=== PATIENT | female | born 1990 | race Caucasian/White ===

== ENCOUNTER 2016-12-18 16:54 | Emergency (ER) | payer SELFPAY ==
[2016-12-18] MEDS ORDERED: AMOXICILLIN875 M1 PO (18:31)
[2016-12-18] MEDS ORDERED: NO HOME MEDICATION XX (18:40)
[2016-12-18] MEDS ORDERED: ZITHROMAX250 M1 PO (18:46)
[2016-12-18] MEDS ORDERED: TESSALON PERLE100 M1 PO (19:00)
[2017-03-27] MEDS ORDERED: IBUPROFEN800 M1 PO (17:12)
[2017-03-27] MEDS ORDERED: ZOFRAN ODT4 MG PO (17:12)
[2017-03-27] MEDS ORDERED: PERCOCET 5-3251 EACH PO (17:12)
== END 2016-12-18 19:17 ==
LOC: EDMED 16:54
DX: J32.9 Chronic sinusitis, unspecified (principal); E11.9 Type 2 diabetes mellitus without complications; F17.210 Nicotine dependence, cigarettes, uncomplicated; Z91.013 Allergy to seafood